=== PATIENT | female | born 1975 | race Caucasian/White ===

== ENCOUNTER 2017-08-18 21:22 | Emergency (ER) | payer MEDICAID ==
[~2017-08-18 21:22] MED LIST: ALBU18HF2 INH; CODE118S4 PO; HYDR-3686 PO; HYDR-569 PO; IBUP-1984 PO; LAMO100T2 PO; LURA40TA3 PO; MULT-1085 PO; TRAZ-143 PO
[2017-08-18 21:28] VITALS: BP 157/103
== END 2017-08-19 00:39 | disposition left against medical advice (07) ==
LOC: ER 21:23
DX: L98.8 Other specified disorders of the skin and subcutaneous tissue (principal); Z53.21 Procedure and treatment not carried out due to patient leaving prior to being seen by health care provider

== ENCOUNTER 2017-09-10 00:04 | Emergency (ER) | payer MEDICAID ==
[~2017-09-10] VITALS: Ht 167.6 cm; Wt 94.2 kg
[2017-09-10] MEDS ORDERED: famotidine 20mg tablet PO ONE (00:40)
[2017-09-10] MEDS ORDERED: diphenhydrAMINE 25mg capsule PO ONE (00:40)
[2017-09-10] MEDS ORDERED: predniSONE 20 mg tablet PO ONE (00:40)
[2017-09-10] MEDS ORDERED: FAMO-128 PO (00:42)
[2017-09-10] MEDS ORDERED: METH4TAB81 PO (00:42)
[2017-09-10] MEDS ORDERED: DIPH25CA83 PO (00:42)
[2017-09-10 00:54] VITALS: BP 128/91
== END 2017-09-10 00:56 | disposition home or self-care (01) ==
LOC: ER 00:05
DX: L23.9 Allergic contact dermatitis, unspecified cause (principal); Z79.899 Other long term (current) drug therapy
CPT/HCPCS: 99284; J7512; Q0163

== ENCOUNTER 2017-09-24 19:26 | Emergency (ER) | payer MEDICAID ==
[~2017-09-24] VITALS: Ht 167.6 cm; Wt 92.8 kg
[~2017-09-24 19:26] MED LIST changes: +DIPH25CA83 PO; +FAMO-128 PO; +METH4TAB81 PO
[2017-09-24 19:32] VITALS: BP 153/92
[2017-09-24] MEDS ORDERED: CLIN-80 PO (19:36)
== END 2017-09-24 19:54 | disposition home or self-care (01) ==
LOC: ER 19:27
DX: R21 Rash and other nonspecific skin eruption (principal); Z98.84 Bariatric surgery status; Z79.899 Other long term (current) drug therapy
CPT/HCPCS: 99283

== ENCOUNTER 2017-10-15 16:31 | Emergency (ER) | payer MEDICAID ==
[~2017-10-15] VITALS: Ht 167.6 cm; Wt 95.0 kg
[~2017-10-15 16:31] MED LIST changes: +CLIN-80 PO
[2017-10-15 17:52] LABS: CLARITY,URINE CLEAR (Clear); COLOR,URINE YELLOW (Yellow); GLUCOSE, URINE NEGATIVE (Neg); KETONES,URINE NEGATIVE (Neg); LEUKOCYTE ESTERASE ,URINE NEGATIVE (Neg); NITRITES, URINE NEGATIVE (Neg); OCCULT BLOOD,URINE SMALL (Neg); PH,URINE 5.5 (4.8-8.0); PROTEIN,URINE NEGATIVE (Neg); UROBILINOGEN,URINE 0.2 E.U/dL (0.2-1.0)
[2017-10-15 17:53] LABS: URINE HCG NEGATIVE (NEG)
[2017-10-15 17:58] LABS: UA COLLECTION TYPE CLN CATCH MIDSTREAM
[2017-10-15 17:59] LABS: BACTERIA,URINE 2+ /HPF (Neg); RBC,URINE NONE SEEN /HPF (0-2); SQUAMOUS EPITHELIAL CELL,UR MANY /LPF (FEW); WBC,URINE 0-4 /HPF (0-4)
[2017-10-15] MEDS ORDERED: ALBU6.7H INH (19:30)
[2017-10-15] MEDS ORDERED: PRED20TA PO (19:30)
[2017-10-15] MEDS ORDERED: D-ME118S12 PO (19:30)
[2017-10-15] MEDS ORDERED: TACR30OI4 TP (19:30)
[2017-10-15 19:35] VITALS: BP 125/65
== END 2017-10-15 19:37 | disposition home or self-care (01) ==
LOC: ER 16:32
DX: J40 Bronchitis, not specified as acute or chronic (principal); L30.9 Dermatitis, unspecified; J45.909 Unspecified asthma, uncomplicated; Z79.899 Other long term (current) drug therapy
CPT/HCPCS: 71046; 81001; 81025; 99285

== ENCOUNTER 2018-02-22 12:11 | Emergency (ER) | payer MEDICAID ==
[~2018-02-22] VITALS: Ht 167.6 cm; Wt 90.0 kg
[~2018-02-22 12:11] MED LIST changes: +ALBU6.7H INH; -CLIN-80 PO; +CLIN300C85 PO; +TACR30OI4 TP
[2018-02-22 12:17] VITALS: BP 151/76
[2018-02-22] MEDS ORDERED: MUPI22OI30 TOP (13:08)
== END 2018-02-22 13:40 | disposition home or self-care (01) ==
LOC: ER 12:12
DX: T24.111A Burn of first degree of right thigh, initial encounter (principal); J45.909 Unspecified asthma, uncomplicated; Z79.899 Other long term (current) drug therapy; X97.XXXA Assault by smoke, fire and flames, initial encounter; Y93.89 Activity, other specified; Y92.89 Other specified places as the place of occurrence of the external cause; Y99.8 Other external cause status
CPT/HCPCS: 99283

== ENCOUNTER 2018-04-27 05:16 | Emergency (ER) | payer MEDICAID ==
[~2018-04-27] VITALS: Ht 185.4 cm; Wt 80.0 kg
[~2018-04-27 05:16] MED LIST changes: -TRAZ-143 PO; +TRAZ-218 PO
[2018-04-27 05:35] VITALS: BP 143/97
[2018-04-27] MEDS ORDERED: IVER3TAB2 PO (05:50)
== END 2018-04-27 06:03 | disposition home or self-care (01) ==
LOC: ER 05:17
DX: S40.862A Insect bite (nonvenomous) of left upper arm, initial encounter (principal); S40.861A Insect bite (nonvenomous) of right upper arm, initial encounter; S90.562A Insect bite (nonvenomous), left ankle, initial encounter; S90.561A Insect bite (nonvenomous), right ankle, initial encounter; J45.909 Unspecified asthma, uncomplicated; Z98.890 Other specified postprocedural states; Z59.0 Homelessness; Z79.2 Long term (current) use of antibiotics; Z79.899 Other long term (current) drug therapy; W57.XXXA Bitten or stung by nonvenomous insect and other nonvenomous arthropods, initial encounter; Y93.89 Activity, other specified; Y92.89 Other specified places as the place of occurrence of the external cause; Y99.8 Other external cause status
CPT/HCPCS: 99283

== ENCOUNTER 2018-07-13 12:50 | Emergency (ER) | payer MEDICAID ==
[~2018-07-13] VITALS: Ht 167.6 cm; Wt 84.1 kg
[~2018-07-13 12:50] MED LIST changes: +HYDR-4383 PO; -HYDR-569 PO; +IVER3TAB2 PO
[2018-07-13 12:56] VITALS: BP 137/86
[2018-07-13] MEDS ORDERED: predniSONE 20 mg tablet PO ONE (13:10)
[2018-07-13] MEDS ORDERED: PRED20TA PO (13:10)
== END 2018-07-13 13:23 | disposition home or self-care (01) ==
LOC: ER 12:50
DX: L23.7 Allergic contact dermatitis due to plants, except food (principal); J45.909 Unspecified asthma, uncomplicated; Z79.2 Long term (current) use of antibiotics; Z79.899 Other long term (current) drug therapy
CPT/HCPCS: 99283; J7512

== ENCOUNTER 2018-07-22 16:57 | Emergency (ER) | payer MEDICAID ==
[~2018-07-22] VITALS: Ht 167.6 cm; Wt 70.0 kg
[2018-07-22 17:08] VITALS: BP 160/100
[2018-07-22] MEDS ORDERED: TRIA15CR62 TP (18:02)
[2018-07-22] MEDS ORDERED: PRED10TA23 PO (18:02)
[2018-07-22] MEDS ORDERED: HYDR-3686 PO (18:02)
== END 2018-07-22 18:12 | disposition home or self-care (01) ==
LOC: ER 16:57
DX: L23.7 Allergic contact dermatitis due to plants, except food (principal); L30.8 Other specified dermatitis; R23.4 Changes in skin texture; L98.8 Other specified disorders of the skin and subcutaneous tissue; F42.4 Excoriation (skin-picking) disorder; J45.909 Unspecified asthma, uncomplicated; Z59.0 Homelessness; Z79.899 Other long term (current) drug therapy; Z98.84 Bariatric surgery status
CPT/HCPCS: 99283

== ENCOUNTER 2018-08-02 15:57 | Emergency (ER) | payer MEDICAID ==
[~2018-08-02] VITALS: Ht 167.6 cm; Wt 82.6 kg
[~2018-08-02 15:57] MED LIST changes: +PRED10TA23 PO
[2018-08-02 16:17] VITALS: BP 169/109
[2018-08-02] MEDS ORDERED: CLIN150C2 PO (17:19)
== END 2018-08-02 17:27 | disposition home or self-care (01) ==
LOC: ER 15:57
DX: L02.415 Cutaneous abscess of right lower limb (principal); J45.909 Unspecified asthma, uncomplicated; Z98.84 Bariatric surgery status; Z79.899 Other long term (current) drug therapy
CPT/HCPCS: 99283

== ENCOUNTER 2018-12-29 07:11 | Emergency (ER) | payer MEDICAID ==
[~2018-12-29] VITALS: Ht 167.6 cm; Wt 84.0 kg
[~2018-12-29 07:11] MED LIST changes: +CLIN-96 PO; -CLIN300C85 PO; -PRED10TA23 PO; -TRAZ-218 PO; +TRAZ-251 PO
[2018-12-29 07:32] VITALS: BP 140/90
[2018-12-29] MEDS ORDERED: DOXY100C2 PO (08:24)
== END 2018-12-29 09:14 | disposition home or self-care (01) ==
LOC: ER 07:12
DX: L73.9 Follicular disorder, unspecified (principal); J45.909 Unspecified asthma, uncomplicated; Z79.899 Other long term (current) drug therapy
CPT/HCPCS: 99283

== ENCOUNTER 2019-05-22 10:40 | Emergency (ER) | payer OTHER, MEDICAID ==
[~2019-05-22] VITALS: Ht 167.6 cm; Wt 77.3 kg
[~2019-05-22 10:40] MED LIST changes: -ALBU6.7H INH; +ALBU6.7H9 INH; +PRED10TA PO
[2019-05-22 12:40] LABS: BASOPHILS % (AUTO) 0.6 % (0-1); EOSINOPHILS % (AUTO) 0.8 % (0-6); LYMPHOCYTES # (AUTO) 1.5 X10'3 (1.1-4.8); MEAN CORPUSCULAR HEMOGLOBIN 29.1 PG (27.0-31.0); MEAN CORPUSCULAR HGB CONC 33.4 g/dL (33.0-36.5); MEAN CORPUSCULAR VOLUME 87.1 FL (78-98); MEAN PLATELET VOLUME 7.5 FL (7.4-10.4); MONOCYTES # (AUTO) 0.3 X10'3 (0-0.9); MONOCYTES % (AUTO) 4.6 % (2-12); PLATELET COUNT 248 X10'3 (140-440); RED BLOOD COUNT 4.13 X10'6 (4.20-5.60); RED CELL DISTRIBUTION WIDTH 14.8 % (11.5-14.5); WHITE BLOOD COUNT 5.9 X10'3 (4.5-11.0)
[2019-05-22 12:51] LABS: PARTIAL THROMBOPLASTIN TIME 25 SECONDS (22-32)
[2019-05-22 12:54] LABS: ALANINE AMINOTRANSFERASE 22 U/L (12-78); ALBUMIN 3.9 G/DL (3.4-5.0); ALBUMIN/GLOBULIN RATIO 1.1 (1.1-1.5); ALKALINE PHOSPHATASE 67 IU/L (46-116); ANION GAP 5 (8-16); ASPARTATE AMINO TRANSFERASE 15 U/L (10-37); BILIRUBIN,TOTAL 0.2 MG/DL (0.1-1.0); BLOOD UREA NITROGEN 11 MG/DL (7-18); BUN/CREATININE RATIO 13.4 (6.6-38.0); CALCIUM 8.9 MG/DL (8.5-10.1); CHLORIDE 106 MMOL/L (99-107); CREATININE 0.82 MG/DL (0.40-0.90); GLUCOSE 96 MG/DL (70-104); POTASSIUM 4.4 MMOL/L (3.5-5.1); SODIUM 141 MMOL/L (135-145); TOTAL CARBON DIOXIDE 29.8 MMOL/L (24-32); TOTAL PROTEIN 7.6 G/DL (6.4-8.2); eGFR 76 ML/MIN
[2019-05-22 13:32] VITALS: BP 116/87
== END 2019-05-22 13:39 | disposition home or self-care (01) ==
LOC: ER 10:40 → EEVIPCON 10:40 → ER 13:39
DX: R07.89 Other chest pain (principal); R53.1 Weakness; R53.83 Other fatigue; J45.909 Unspecified asthma, uncomplicated; F31.9 Bipolar disorder, unspecified; F15.90 Other stimulant use, unspecified, uncomplicated; Z98.84 Bariatric surgery status; Z79.899 Other long term (current) drug therapy
CPT/HCPCS: 36415; 71045; 80053; 84484; 85025; 85610; 85730; 93005; 99284

== ENCOUNTER 2019-07-19 22:31 | Emergency (ER) | payer MEDICAID, OTHER ==
[~2019-07-19] VITALS: Ht 167.6 cm; Wt 76.0 kg
[~2019-07-19 22:31] MED LIST changes: +CLIN-90 PO; -CLIN-96 PO
[2019-07-19] MEDS ORDERED: PRED20TA PO ×2 (23:51→23:55)
[2019-07-20 00:13] VITALS: BP 148/86
== END 2019-07-20 00:15 | disposition home or self-care (01) ==
LOC: ER 22:32
DX: L23.7 Allergic contact dermatitis due to plants, except food (principal); J45.909 Unspecified asthma, uncomplicated; F31.9 Bipolar disorder, unspecified; F15.90 Other stimulant use, unspecified, uncomplicated; Z98.0 Intestinal bypass and anastomosis status; Z59.0 Homelessness; Z98.890 Other specified postprocedural states; Z79.899 Other long term (current) drug therapy
CPT/HCPCS: 99283

== ENCOUNTER 2020-09-04 07:24 | Emergency (ER) | payer MEDICAID ==
[~2020-09-04] VITALS: Ht 165.1 cm; Wt 80.9 kg
[~2020-09-04 07:24] MED LIST changes: -CLIN-90 PO; +CLIN-97 PO; +PRED20TA PO
[2020-09-04] MEDS ORDERED: VALA100031 PO (07:48)
== END 2020-09-04 08:14 | disposition home or self-care (01) ==
LOC: ER 07:24
DX: U07.1 COVID-19 (principal); R43.9 Unspecified disturbances of smell and taste; B00.9 Herpesviral infection, unspecified; J45.909 Unspecified asthma, uncomplicated; F15.90 Other stimulant use, unspecified, uncomplicated; Z59.0 Homelessness; Z72.89 Other problems related to lifestyle; Z98.84 Bariatric surgery status; Z79.2 Long term (current) use of antibiotics; Z79.899 Other long term (current) drug therapy
CPT/HCPCS: 36415; 87635; 99283; C9803